=== PATIENT | male | born 1945 | race Caucasian/White ===

== ENCOUNTER 2019-12-16 13:14 | Emergency (ER) | payer MEDICARE, OTHER ==
[2019-12-16 13:22] VITALS: BP 130/81
--- NOTE | 2019-12-16 13:32 | ER Document Report ---
HPI - HPI Time Seen by Provider: 12/16/19 13:26 Notes: Patient is a 73-year-old male presents for staple removal from his head that were placed 10 days ago in a hospital in [place] status post fall. Patient states he has been feeling well since then. He has not had any complications with the wound itself. He has not noticed any redness or purulent discharge. He has not had any pain or separation of the wound. Denies drug allergies. Denies any headache, fever, neck pain, changes in v ision/speech/mentation/hearing, URI, sore throat, chest pain, palpitations, syncope, cough, shortness of breath, wheeze, dyspnea, abdominal pain, nausea/vomiting/diarrhea, urinary retention, dysuria, hematuria, loss of control of bowel or bladder, numbness/tingling, saddle anesthesia, muscle paralysis/weakness, or rash. - ROS Systems Reviewed and Negative: Yes All other systems reviewed and negative Past Medical History - Social History Smoking Status: Unknown if Ever Smoked Family History: Reviewed & Not Pertinent Vertical Provider Document - CONSTITUTIONAL Agree With Documented VS: Yes Notes: PHYSICAL EXAMINATION: GENERAL: Well-appearing, well-nourished and in no acute distress. A&Ox4. answers questions appropriately. HEAD: There are [address] without erythema, wound dehiscence, no discharge, or streaks. Nontender to palpate. EYES: Pupils equal round and reactive to light, extraocular movements intact, sclera anicteric, conjunctiva are normal. ENT: Nares patent and without discharge. oropharynx clear without exudates. No tonsilar hypertrophy or erythema. Moist mucous membranes. NECK: Normal range of motion, supple without lymphadenopathy LUNGS: Breath sounds clear to auscultation bilaterally and equal. No wheezes rales or rhonchi. HEART: Regular rate and rhythm without murmurs, rubs, gallops. Musculoskeletal: FROM to passive/active. Strength 5+/5. Extremities: No cyanosis, clubbing, or edema b/l. Peripheral pulses 2+. Capillary refill less than 3 seconds. NEUROLOGICAL: Cranial nerves grossly intact. Normal speech, normal gait. PSYCH: Normal mood, normal affect. SKIN: Warm, Dry, normal turgor, no rashes or lesions noted. Course - Re-evaluation Re-evalutation: 12/16/19 13:30 Patient is an afebrile, well-hydrated, 73-year-old male who presents for staple removal. There is no evidence of secondary bacterial infection or wound dehiscence. Vitals are acceptable without significant tachycardia, tachypnea, hypoxia. PE is otherwise unremarkable. Patient is nontoxic-appearing and is tolerating p.o. without difficulty. No labs or imaging warranted. 9 russel removed without any complications. Low suspicion for any other systemic or emergent condition at this time. Patient to recheck with his PCM next week. Return to the ED with any other worsening/concerning symptoms. Patient is in agreement. - Vital Signs Vital signs: Temp Pulse Resp BP Pulse Ox 97.8 F 62 18 130/81 H 94 12/16/19 13:20 12/16/19 13:20 12/16/19 13:20 12/16/19 13:20 12/16/19 13:20 Discharge - Discharge Clinical Impression: Removal of russel Condition: Stable Disposition: HOME, SELF-CARE Instructions: Staple Removal ([facility]) Additional Instructions: Keep the skin clean Wash with soap and water Tylenol/ibuprofen if needed Take medication as directed Monitor for any worsening symptoms Recheck with your PCM in 3-5 days Return to the ED with any worsening symptoms and/or development of fever, headache, chest pain, palpitations, syncope, shortness of breath, trouble breathing, abdominal pain, n/v/d, abscess, purulent discharge, red streaks, worsening swelling, or other worsening symptoms that are concerning to you. Forms: Elevated Blood Pressure Referrals: [facility] [Provider Group] - Follow up as needed
== END 2019-12-16 13:49 | disposition home or self-care (01) ==
LOC: ER 13:14
DX: S01.90XD Unspecified open wound of unspecified part of head, subsequent encounter (principal); W19.XXXD Unspecified fall, subsequent encounter; W22.03XD Walked into furniture, subsequent encounter
CPT/HCPCS: 99281